=== PATIENT | male | born 1930 | race Caucasian/White ===

== ENCOUNTER 2016-10-03 12:06 | Day surgery (SDC) | payer MEDICARE, BC ==
[~2016-10-03] VITALS: Ht 165.1 cm; Wt 56.4 kg
[2016-10-03 13:01] LABS: BASOPHILS 0.5 % (0-2); EOSINOPHILS 3.5 % (0-7); HEMATOCRIT 32.5 % (42.0-54.0); IMMATURE GRANULOCYTES 0.5 % (0-5); LYMPHOCYTES 27.8 % (15-50); MCH 32.3 pg (26.0-34.0); MCHC 30.8 g/dL (31.0-37.0); MCV 104.8 fL (80.0-100.0); MEAN PLATELET VOLUME 9.7 fL (7.4-10.4); NEUTROPHILS 59.7 % (40-80); PLATELET COUNT 117 10x3/uL (130-400); RDW 15.2 % (11.5-14.5); WBC 5.5 10x3/uL (4.8-10.8)
[2016-10-03 13:20] LABS: ANION GAP 11.2 mmol/L (8-16); CARBON DIOXIDE 31.5 mmol/L (21.0-32.0); CREATININE - SERUM 1.8 mg/dL (0.6-1.3); POTASSIUM - SERUM 4.7 mmol/L (3.5-5.1)
[2016-10-03] MEDS ORDERED: COREG 3.1253.125 MG PO (13:55)
[2016-10-03] MEDS ORDERED: LISINOPRIL2.5 MG PO (13:56)
[2016-10-03] MEDS ORDERED: FERROUS SULFATE PO (13:56)
[2016-10-03] MEDS ORDERED: SYNTHROID100 MCG PO (13:57)
[2016-10-03] MEDS ORDERED: CELEXA20 MG PO (13:57)
[2016-10-03] MEDS ORDERED: PROTONIX40 MG PO (13:58)
[2016-10-03] MEDS ORDERED: ADVAIR HFA [SP]12 GM INH (13:58)
[2016-10-03] MEDS ORDERED: COLACE100 MG PO (13:58)
[2016-10-03 14:07] VITALS: BP 111/57; Ht 165.1 cm; Wt 56.4 kg
--- NOTE | 2016-10-03 16:45 | NUR ---
PATIENT DRESSED IN PERSONAL CLOTHING, RIGHT FOREARM PIV DC'D WITH TIP INTACT, DISCHARGE INSTRUCTIONS REVIEWED WITH PATIENT AND SPOUSE. DISCHARGED HOME VIA WHEELCHAIR TO PRIVATE VEHICLE WITH DAUGHTER
--- NOTE | 2016-10-05 16:52 | OP ---
PATIENT NAME: KATELIN LY MEDICAL RECORD: [id number] :34 LOCATION:[facility] ADMISSION DATE: SURGEON: ARSEN PALACIOS DO OPERATION DATE: 10/03/16 PROCEDURE: Esophagogastroduodenoscopy with biopsies. INDICATION: Anemia, dysphagia which the patient reports has resolved. SCOPE: [employer] video gastroscope. MEDICATIONS: Propofol 90 milligrams IV per anesthesia. ESTIMATED BLOOD LOSS: Minimal. COMPLICATIONS: None. FINDINGS: Informed consent was given. The patient was made comfortable with the above medication. After reaching an adequate level of sedation by slow IV push, the patient was placed on his left side. The endoscope was then advanced under direct visualization through the mouth down to the fourth portion of the duodenum. The upper, middle, and lower thirds of the esophagus appeared normal. The gastroesophageal junction appeared normal without obvious evidence of esophagitis. The scope was advanced into the stomach and retroflexed to view the cardia where a small sliding hiatal hernia was present. The entire stomach including the fundus, body, antrum, and prepyloric regions all had granularity and the appearance of atrophic gastritis. Multiple biopsies were taken to submit for histology and to rule out Helicobacter-pylori. The endoscope was advanced beyond the pylorus into duodenum where the bulb and first through fourth portions of right duodenum appeared normal. Scope was withdrawn from the patient completely. The patient tolerated the procedure well, and there were no complications. IMPRESSIONS: 1. Small sliding hiatal hernia. 2. Granularity of the stomach and the appearance of atrophic gastritis, biopsies taken. PLAN/RECOMMENDATIONS: 1. Discharge home when recovery parameters are met. 2. Follow-up on results of biopsy specimens. 3. Continue current medications including Omeprazole 20 milligrams daily. 4. Follow-up with gastroenterology clinic as needed. 5. Further recommendations to follow if biopsy results are abnormal. ARSEN PALACIOS DO at 1652 CC: [id number] DICTATION DATE: 10/03/16 1400 [employer] CODING SPECIALIST: DM 10/04/[address] [facility] 10/03/16 [facility] [address] [place] [address]
== END 2016-10-03 16:45 | disposition home or self-care (01) ==
LOC: D.OPS 12:06
PROVIDERS: Anesthesiology
DX: K29.40 Chronic atrophic gastritis without bleeding (principal); K44.9 Diaphragmatic hernia without obstruction or gangrene; D64.9 Anemia, unspecified; Z01.812 Encounter for preprocedural laboratory examination